=== PATIENT | male | born 1950 | race Caucasian/White ===

== ENCOUNTER 2018-03-20 11:17 | Emergency (ER) | payer MEDICARE, BC ==
--- NOTE | 2018-03-20 12:11 | EDM.PDOC ---
ED HPI GENERAL MEDICAL PROBLEM - General Chief Complaint: Neuro Symptoms/Deficits Stated Complaint: DIZZINESS Time Seen by Provider: 03/20/18 11:50 Source of Information: Reports: Patient, Family History Limitations: Reports: No Limitations - History of Present Illness INITIAL COMMENTS - FREE TEXT/NARRATIVE: 68-year-old male with a history of coronary artery disease, 4 stents placed 10 years ago has been doing well but today was walking into a local business and felt extremely lightheaded and dizzy, felt like he was going to fall over. He was brought in and placed on a ekg monitor tech and his pulse was only in the mid to upper 30s. He has no chest pain or shortness of breath. Onset: Sudden Duration: Hour(s): (Symptoms have been ongoing for the past hour, still feel somewhat woozy) Severity: Moderate Worsens with: Reports: Other (Standing or movement) Associated Symptoms: Denies: Confusion, Chest Pain, Cough, Fever/Chills, Headaches, Malaise, Shortness of Breath - Related Data Allergies Allergy/AdvReac Type Severity Reaction Status Date / Time No Known Allergies Allergy Verified 05/30/13 13:46 Home Meds: Home Meds Acetaminophen, 500mg, Take 1 Tab By Mouth Two Times A Day, Limit To 4000mg A Day 500 mg PO ASDIRECTED PRN 06/05/13 [History] Aspirin, Ec, 81mg , 1 Tab, Po, Qday, 90 Tab 81 mg PO DAILY 06/05/13 [History] Nitroglycerin, 0.4 Mg Sl, Place 1 Tab Under The Tongue Every 5 Minutes 1 tab PO ASDIRECTED PRN 06/05/13 [History] atorvaSTATin [Lipitor] 10 mg PO DAILY 09/08/16 [History] Past Medical History HEENT History: Reports: Impaired Vision Cardiovascular History: Reports: [place] - Infectious Disease History Infectious Disease History: Reports: Chicken Pox, Measles, Mumps - Past Surgical History Cardiovascular Surgical History: Reports: Coronary Artery Stent Other Cardiovascular Surgeries/Procedures: stents in Musculoskeletal Surgical History: Reports: Knee Replacement Social & Family History - Tobacco Use Smoking Status *Q: Never Smoker - Caffeine Use Caffeine Use: Reports: Coffee, Soda, Tea - Recreational Drug Use Recreational Drug Use: No - Living Situation & Occupation Living situation: Reports: ED ROS GENERAL - Review of Systems Review Of Systems: See Below Constitutional: Denies: Fever, Chills Respiratory: Denies: Shortness of Breath Cardiovascular: Denies: Chest Pain, Palpitations GI/Abdominal: Denies: Abdominal Pain, Nausea, Vomiting Musculoskeletal: Reports: No Symptoms Skin: Denies: Diaphoresis Neurological: Reports: Dizziness. Denies: Headache ED EXAM, DIZZINESS - Physical Exam Exam: See Below Exam Limited By: No Limitations General Appearance: Alert, No Apparent Distress Eye Exam: Bilateral Eye: Normal Inspection (No nystagmus) Ears: Normal External Exam, Normal TMs Head Exam: Atraumatic Neck: Normal Inspection Respiratory/Chest: No Respiratory Distress, Lungs Clear Cardiovascular: Bradycardia, Extra Beats Neurological: Alert, No Motor/Sensory Deficits Extremities: No: Pedal Edema Psychiatric: Normal Affect, Normal Mood Skin Exam: Warm, Dry Course - Vital Signs Last Recorded V/S: Last Vital Signs Temp 97.1 F 03/20/18 12:20 Pulse 42 L 03/20/18 12:20 Resp 12 03/20/18 12:20 BP 140/68 03/20/18 12:20 Pulse Ox 96 03/20/18 11:40 - Orders/Labs/Meds Orders: Active Orders 24 hr Category Date Time Status EKG Documentation Completion [RC] ASDIRECTED Care 03/20/18 12:09 Active EKG 12 Lead [EK] Routine Ther 03/20/18 12:09 Ordered Labs: Laboratory Tests 03/20/18 03/20/18 Range/Units 12:15 12:15 WBC 5.1 (4.5-11.0) K/uL RBC 4.64 (4.30-5.90) M/uL Hgb 14.7 (12.0-15.0) g/dL Hct 43.9 (40.0-54.0) % MCV 95 (80-98) fL MCH 32 H (27-31) pg MCHC 34 (32-36) % Plt Count 169 (150-400) K/uL Neut % (Auto) 60 (36-66) % Lymph % (Auto) 22 L (24-44) % [place] % (Auto) 16 H (2-6) % Eos % (Auto) 3 (2-4) % Baso % (Auto) 0 (0-1) % Sodium 141 (140-148) mmol/L Potassium 4.4 (3.6-5.2) mmol/L Chloride 105 (100-108) mmol/L Carbon Dioxide 28 (21-32) mmol/L Anion Gap 8.0 (5.0-14.0) mmol/L BUN 13 (7-18) mg/dL Creatinine 0.9 (0.8-1.3) mg/dL Est Cr Clr Drug Dosing 79.98 mL/min Estimated GFR (MDRD) > 60 (>60) Glucose 107 H (74-106) mg/dL Calcium 8.6 (8.5-10.1) mg/dL Total Bilirubin 0.4 (0.2-1.0) mg/dL AST 19 (15-37) U/L ALT 23 (12-78) U/L Alkaline Phosphatase 64 (46-116) U/L Troponin I < 0.017 (0.000-0.056) ng/mL Total Protein 6.4 (6.4-8.2) g/dL Albumin 3.3 L (3.4-5.0) g/dL Globulin 3.1 (2.3-3.5) g/dL Albumin/Globulin Ratio 1.1 L (1.2-2.2) - Re-Assessments/Exams Free Text/Narrative Re-Assessment/Exam: 03/20/18 12:17 EKG will be obtained as well as a CBC, CMP and troponin. 03/20/18 13:34 EKG confirms sinus bradycardia with occasional PACs. CBC CMP and troponin were reassuring. Patient was kept on a monitor and actually had a rate decreasing into the upper 20s at times. He is planning on a hiking trip in [place] in a couple of weeks, I think this needs to be evaluated before he goes. I discussed his condition with the hospitalist service at [facility] in [place], he was kindly accepted and will be transported by private car. Departure - Departure Time of Disposition: 13:54 Disposition: DC/Tfer to Other Condition: Fair Clinical Impression: Symptomatic sinus bradycardia, Dizziness - Discharge Information Instructions: Bradycardia, Adult Referrals: Steven Aparicio MD [Primary Care Provider] - Forms: ED Department Discharge Care Plan Goals: Go directly to the [facility] just [facility] in [place] for direct admission. - My Orders Last 24 Hours: My Active Orders 03/20/18 12:09 EKG Documentation Completion [RC] ASDIRECTED EKG 12 Lead [EK] Routine - Assessment/Plan Last 24 Hours: My Active Orders 03/20/18 12:09 EKG Documentation Completion [RC] ASDIRECTED EKG 12 Lead [EK] Routine
[2018-03-20 12:31] VITALS: BP 140/68
== END 2018-03-20 13:55 | disposition other institution (70) ==
LOC: JP.ED 11:17
DX: R42 Dizziness and giddiness (principal); I25.10 Atherosclerotic heart disease of native coronary artery without angina pectoris; I25.2 Old myocardial infarction; Z95.5 Presence of coronary angioplasty implant and graft; Z79.899 Other long term (current) drug therapy
CPT/HCPCS: 36415; 80053; 84484; 85025; 93005; 93010; 99285-25

== ENCOUNTER 2021-10-15 08:58 | Day surgery (SDC) | payer MEDICARE, BC ==
[~2021-10-15 08:58] MED LIST: Midazolam 1 MG/ML 2 ML SDV ONE; Propofol 200 MG/20 ML SDV ONE; fentaNYL 100 MCG/2 ML SDV ONE
[2021-10-15] MEDS ORDERED: Sodium Chloride 0.9% 1,000 ML IV SCH (09:30)
[2021-10-15 09:55] LABS: CORONAVIRUS COVID-19 NAA NEGATIVE (NEGATIVE)
[2021-10-15 11:59] VITALS: PULSE 52
[2021-10-15 12:18] VITALS: BP 154/92
== END 2021-10-15 12:35 | disposition home or self-care (01) ==
LOC: JP.SDS 08:58
PROVIDERS: ATTEND Surgery
DX: Z12.11 Encounter for screening for malignant neoplasm of colon (principal); D12.5 Benign neoplasm of sigmoid colon; K57.30 Diverticulosis of large intestine without perforation or abscess without bleeding; G47.33 Obstructive sleep apnea (adult) (pediatric); Z01.812 Encounter for preprocedural laboratory examination; Z20.822 Contact with and (suspected) exposure to COVID-19
CPT/HCPCS: 0241U; 45385; 88305; J2250; J2704; J3010